=== PATIENT | female | born 1980 | race Caucasian/White ===

== ENCOUNTER 2016-09-16 00:10 | Emergency (ER) | payer BC ==
[~2016-09-16] VITALS: Ht 157.4 cm; Wt 65.8 kg
[~2016-09-16 00:10] MED LIST: FLOMAX0.4 MG PO; METHOTREXATE2.5 M1 PO; NATURE'S BLEND F1 MG PO; NORCO 5-325 TA1 EACH PO; TOPAMAX50 MG PO; ZOFRAN ODT4 MG SL
[2016-09-16 00:55] LABS: BASO % 0.5 % (0.0-1.0); EOS # 0.1 10*3/uL (0.0-0.4); EOS % 1.3 % (1.0-4.0); HEMOGLOBIN 13.6 g/dl (12.0-16.0); LYMPH # 1.9 10*3/uL (1.3-4.4); LYMPH % 24.9 % (27.0-41.0); MEAN CELL VOLUME 86.2 fl (81.0-99.0); MEAN CORPUSCULAR HGB 29.3 pg (27.0-31.0); MEAN PLATELET VOLUME 11.1 fl (9.6-12.3); MONO # 0.5 10*3/uL (0.1-1.0); MONO % 7.1 % (3.0-9.0); NEUT % 65.9 % (47.0-73.0); PLATELET COUNT AUTOMATED 218 10*3/uL (130-400); RED BLOOD COUNT 4.64 10*6/uL (4.10-5.10); RED CELL DISTRI WIDTH 13.4 % (0-14.5); WHITE BLOOD COUNT 7.6 10*3/uL (4.8-10.8)
[2016-09-16 01:04] LABS: BILIRUBIN NEGATIVE (NEGATIVE); BLOOD 2+ (NEGATIVE); CLARITY CLOUDY (CLEAR); COLOR YELLOW (YELLOW); GLUCOSE NEGATIVE (NEGATIVE); KETONE NEGATIVE (NEGATIVE); LEUKO ESTERASE NEGATIVE (NEGATIVE); NITRITE NEGATIVE (NEGATIVE); PROTEIN NEGATIVE (NEGATIVE); SPECIFIC GRAVITY <= 1.005 (1.005-1.030)
[2016-09-16 01:09] LABS: ALBUMIN 3.5 gm/dl (3.1-4.5); ALKALINE PHOSPHATASE 62 U/L (45-117); BILIRUBIN, TOTAL 0.6 mg/dl (0.2-1.0); BUN 11 mg/dl (7-24); CARBON DIOXIDE 22 mmol/L (21-32); CHLORIDE 111 mmol/L (98-107); EST GLOM FILT AFRICAN AMERICAN > 60 ml/min; GLUCOSE 110 mg/dL (65-99); POTASSIUM 3.5 mmol/L (3.5-5.1); SGOT/AST 19 IU/L (3-35); SGPT/ALT 18 U/L (12-78); SODIUM 140 mmol/L (136-145)
[2016-09-16 01:14] LABS: BACTERIA 3+; URINE REFLEX COMMENT YES (NO)
[2016-09-16] MEDS ORDERED: ZOFRAN ODT4 MG SL (02:13)
[2016-09-16] MEDS ORDERED: MECLIZINE HCL25 M2 PO (02:13)
== END 2016-09-16 02:40 | disposition home or self-care (01) ==
LOC: ED 00:10
PROVIDERS: Physician Assistant
DX: R42 Dizziness and giddiness (principal); R11.0 Nausea; R21 Rash and other nonspecific skin eruption

== ENCOUNTER 2017-03-09 06:43 | Emergency (ER) | payer BC ==
[~2017-03-09] VITALS: Ht 157.4 cm; Wt 64.9 kg
[~2017-03-09 06:43] MED LIST changes: +MECLIZINE HCL25 M2 PO
[2017-03-09 07:20] LABS: BASO % 0.5 % (0.0-1.0); EOS # 0.1 10*3/uL (0.0-0.4); EOS % 1.7 % (1.0-4.0); HEMATOCRIT 40.2 % (37.0-47.0); HEMOGLOBIN 13.8 g/dl (12.0-16.0); LYMPH # 1.6 10*3/uL (1.3-4.4); LYMPH % 27.4 % (27.0-41.0); MEAN CELL VOLUME 83.8 fl (81.0-99.0); MEAN CORPUSCULAR HGB 28.8 pg (27.0-31.0); MEAN CORPUSCULAR HGB CONC 34.3 g/dl (33.0-37.0); MEAN PLATELET VOLUME 10.8 fl (9.6-12.3); MONO # 0.5 10*3/uL (0.1-1.0); MONO % 8.1 % (3.0-9.0); NEUT # 3.7 10*3/uL (2.3-7.9); NEUT % 62.1 % (47.0-73.0); PLATELET COUNT AUTOMATED 222 10*3/uL (130-400); RED CELL DISTRI WIDTH 12.7 % (0-14.5); WHITE BLOOD COUNT 5.9 10*3/uL (4.8-10.8)
[2017-03-09 07:34] LABS: BUN 15 mg/dl (7-24); CHLORIDE 108 mmol/L (98-107); CREATININE 0.93 mg/dL (0.55-1.02); POTASSIUM 3.4 mmol/L (3.5-5.1); SODIUM 140 mmol/L (136-145)
[2017-03-09 08:18] LABS: BILIRUBIN NEGATIVE (NEGATIVE); BLOOD 3+ (NEGATIVE); CLARITY SL CLOUDY (CLEAR); COLOR YELLOW (YELLOW); GLUCOSE NEGATIVE (NEGATIVE); KETONE NEGATIVE (NEGATIVE); LEUKO ESTERASE NEGATIVE (NEGATIVE); NITRITE NEGATIVE (NEGATIVE); PH 6.5 (5.0-9.0); UROBILINOGEN 0.2 E.U./dl (0.2-1.0)
[2017-03-09 08:32] LABS: BACTERIA 1+; RBC TNTC rbc/hpf (0-2)
[2017-03-09] MEDS ORDERED: FLOMAX0.4 MG PO (08:58)
[2017-03-09] MEDS ORDERED: IBUPROFEN400 MG PO (08:58)
[2017-03-09] MEDS ORDERED: ZOFRAN ODT4 MG SL (08:58)
[2017-03-09] MEDS ORDERED: TYLENOL325 M1 PO (08:58)
== END 2017-03-09 09:14 | disposition home or self-care (01) ==
LOC: ED 06:43
PROVIDERS: Emergency Medicine
DX: N23 Unspecified renal colic (principal); N13.2 Hydronephrosis with renal and ureteral calculous obstruction; L40.9 Psoriasis, unspecified; Z98.51 Tubal ligation status; Z79.899 Other long term (current) drug therapy

== ENCOUNTER 2017-03-20 15:55 | Emergency (ER) | payer BC ==
[~2017-03-20] VITALS: Ht 157.4 cm; Wt 63.5 kg
[~2017-03-20 15:55] MED LIST changes: +IBUPROFEN400 MG PO; +TYLENOL325 M1 PO
[2017-03-20 16:33] LABS: BASO # 0.1 10*3/uL (0.0-0.1); BASO % 0.6 % (0.0-1.0); EOS % 0.4 % (1.0-4.0); HEMOGLOBIN 14.8 g/dl (12.0-16.0); LYMPH # 2.2 10*3/uL (1.3-4.4); LYMPH % 24.4 % (27.0-41.0); MEAN CELL VOLUME 84.9 fl (81.0-99.0); MEAN CORPUSCULAR HGB 28.6 pg (27.0-31.0); MEAN CORPUSCULAR HGB CONC 33.6 g/dl (33.0-37.0); MEAN PLATELET VOLUME 10.4 fl (9.6-12.3); MONO # 0.7 10*3/uL (0.1-1.0); MONO % 7.5 % (3.0-9.0); NEUT % 66.9 % (47.0-73.0); PLATELET COUNT AUTOMATED 234 10*3/uL (130-400); RED BLOOD COUNT 5.18 10*6/uL (4.10-5.10); RED CELL DISTRI WIDTH 12.7 % (0-14.5)
[2017-03-20 16:48] LABS: ALBUMIN 4.2 gm/dl (3.1-4.5); ALKALINE PHOSPHATASE 51 U/L (45-117); BUN 12 mg/dl (7-24); CHLORIDE 107 mmol/L (98-107); CREATININE 0.99 mg/dL (0.55-1.02); POTASSIUM 3.7 mmol/L (3.5-5.1); SGOT/AST 16 IU/L (3-35); SGPT/ALT 20 U/L (12-78); SODIUM 142 mmol/L (136-145); TOTAL PROTEIN 8.2 gm/dL (6.4-8.2)
[2017-03-20 17:00] LABS: BILIRUBIN NEGATIVE (NEGATIVE); BLOOD NEGATIVE (NEGATIVE); CLARITY SL CLOUDY (CLEAR); COLOR YELLOW (YELLOW); GLUCOSE NEGATIVE (NEGATIVE); KETONE NEGATIVE (NEGATIVE); LEUKO ESTERASE NEGATIVE (NEGATIVE); NITRITE NEGATIVE (NEGATIVE); PH 6.5 (5.0-9.0); UROBILINOGEN 0.2 E.U./dl (0.2-1.0)
[2017-03-20 17:08] LABS: BACTERIA 3+; RBC 0-2 rbc/hpf (0-2)
[2017-03-20] MEDS ORDERED: ZOFRAN4 MG PO (18:40)
== END 2017-03-20 18:50 | disposition home or self-care (01) ==
LOC: ED 15:55
PROVIDERS: Nurse Practitioner Family
DX: B27.80 Other infectious mononucleosis without complication (principal); R03.0 Elevated blood-pressure reading, without diagnosis of hypertension; Z87.442 Personal history of urinary calculi; Z98.890 Other specified postprocedural states; Z79.899 Other long term (current) drug therapy

== ENCOUNTER 2020-04-05 13:14 | Emergency (ER) | payer BC ==
[~2020-04-05] VITALS: Ht 157.4 cm; Wt 64.4 kg
[~2020-04-05 13:14] MED LIST changes: +ZOFRAN4 MG PO
[2020-04-05] MEDS ORDERED: IBUPROFEN600 MG PO (15:40)
[2020-04-05] MEDS ORDERED: ROBAXIN-750750 MG PO (15:40)
== END 2020-04-05 16:31 | disposition home or self-care (01) ==
LOC: ED 13:14
DX: S43.492A Other sprain of left shoulder joint, initial encounter (principal); Z98.51 Tubal ligation status; Z79.899 Other long term (current) drug therapy; Y08.89XA Assault by other specified means, initial encounter; Y93.89 Activity, other specified; Y92.89 Other specified places as the place of occurrence of the external cause; Y99.8 Other external cause status

== ENCOUNTER 2021-05-17 21:36 | Emergency (ER) | payer OTHER, BC ==
[~2021-05-17] VITALS: Ht 157.4 cm; Wt 64.9 kg
[~2021-05-17 21:36] MED LIST changes: +IBUPROFEN600 MG PO; +ROBAXIN-750750 MG PO
[2021-05-18] MEDS ORDERED: CYCLOBENZAPRINE10 MG PO (01:12)
== END 2021-05-18 01:25 | disposition home or self-care (01) ==
LOC: ED 21:36
DX: S16.1XXA Strain of muscle, fascia and tendon at neck level, initial encounter (principal); Z98.890 Other specified postprocedural states; V89.2XXA Person injured in unspecified motor-vehicle accident, traffic, initial encounter; Y93.89 Activity, other specified; Y92.89 Other specified places as the place of occurrence of the external cause; Y99.8 Other external cause status